=== PATIENT | male | born 1980 | race Caucasian/White ===

== ENCOUNTER 2020-01-29 13:12 | Emergency (ER) | payer SELFPAY ==
[2020-01-29 13:29] VITALS: BP 140/101; PULSE 63; RESP 18; TEMP 36.8; O2SAT 99
--- NOTE | 2020-01-29 13:57 | ED.DENTAL ---
HPI - Dental/Oral General Chief complaint: Dental/Oral Stated complaint: tooth ache Time Seen by Provider: 01/29/20 13:44 Source: patient and family Mode of arrival: ambulatory Limitations: no limitations History of Present Illness HPI Narrative: 39-year-old with no medical problems here with complaints of dental pain for past few days. He denies any fever or chills. States that he has not seen a dentist for a long time. MD Complaint: tooth pain Location: Tooth # (7,8,9,10,11) Onset (ago): month(s) Duration: constant Severity: moderate Relieving factors: nothing Exacerbating factors: nothing Context: history of dental caries Associated symptoms: gum swelling Treatment prior to arrival: none Related Data Home Medications Medication Instructions Recorded Confirmed No Home Medications 01/29/20 01/29/20 Allergies Allergy/AdvReac Type Severity Reaction Status Date / Time No Known Allergies Allergy Verified 01/29/20 13:31 Review of Systems Review of Systems: All systems reviewed & are unremarkable except as noted in HPI and below Constitutional: Constitutional: Reports no additional constitutional complaints Eyes: Eyes: Reports no additional eye complaints ENT: Reports as per HPI Cardiovascular: Cardiovascular: Reports no additional cardiovascular complaints Respiratory: Respiratory: Reports no additional respiratory complaints Gastrointestinal: Gastrointestinal: Reports no additional gastrointestinal complaints Musculoskeletal: Musculoskeletal: Reports no additional musculoskeletal complaints Integumentary/Breasts: Skin/Breast: Reports system reviewed and no additional complaints, except as docu Exam Narrative: Exam Narrative: GENERAL: Well-appearing, well-nourished, and in no acute distress. HEAD: Normocephalic, atraumatic. EYES: PERRLA and EOMI. ENT: Nares clear, multiple dental caries mucous membranes moist. NECK: Supple. CHEST: Clear to auscultation. No respiratory distress. HEART: Regular rate and rhythm. No murmur heard. Normal peripheral pulses. EXTREMITIES: Normal range of motion. No edema. SKIN: Warm, dry, no rash. NEURO: No focal deficits. Alert and oriented x3. PSYCH: Normal mood and affect. Course Vital Signs Vital signs: Vital Signs Temperature 36.8 C 01/29/20 13:29 Pulse Rate 63 01/29/20 13:29 Respiratory Rate 18 01/29/20 13:29 Blood Pressure 140/101 H 01/29/20 13:29 Pulse Oximetry 99 01/29/20 13:29 Temperature 36.8 C 01/29/20 13:29 Pulse Rate 63 01/29/20 13:29 Respiratory Rate 18 01/29/20 13:29 Blood Pressure 140/101 H 01/29/20 13:29 Pulse Oximetry 99 01/29/20 13:29 Discharge Plan Discharge Clinical Impression: Dental caries Patient Disposition: Home, Self-Care Condition: Stable Instructions: Antibiotic Form, Dental Abscess (ED) Additional Instructions: Take antibiotic as prescribed, follow-up with the dentist Prescriptions: New amoxicillin 875 mg tablet 875 mg PO Q12H Qty: 20 RF: 0 tramadol 50 mg tablet 50 mg PO Q6H PRN (Reason: pain) Qty: 20 RF: 0 No Action No Home Medications RF: 0 Follow-up/Referrals: PHYSICIAN,CHART SNATCHER [Primary Care Provider] - Stand Alone Forms: Work/School Release IP Time of Disposition: 14:04
[2020-01-29 14:18] VITALS: BP 130/96; PULSE 70; RESP 20; O2SAT 100
== END 2020-01-29 14:19 | disposition home or self-care (01) ==
PROVIDERS: Emergency Provider Family Medicine
DX: K02.9 Dental caries, unspecified (principal)
CPT/HCPCS: 99283